=== PATIENT | male | born 1955 | race American Indian/Alaskan Native ===

== ENCOUNTER 2021-10-04 13:07 | Emergency (ER) | payer MEDICARE ==
[2021-10-04 13:46] VITALS: BP 132/84
--- NOTE | 2021-10-04 14:13 | XRay Report ---
CHEST 2 VIEWS INDICATION: SOB. COMPARISON: None. FINDINGS: Support devices: None. Heart: Within normal limits. Lungs/Pleura: No acute air space or interstitial disease. No significant pleural effusion. IMPRESSION: No acute findings. Signer Name: Jose Angel Connors MD Signed: 10/04/2021 2:08 PM Workstation Name: [id number]
[2021-10-04 15:22] LABS: Basophils % (Auto) 0.4 % (0.0-1.8); Eosinophils % (Auto) 0.4 % (0.0-4.3); Hematocrit 43.3 % (35.5-45.6); Hemoglobin 14.8 gm/dl (11.8-15.2); Lymphocytes # (Auto) 1.6 K/mm3 (1.2-5.4); Lymphocytes % (Auto) 25.6 % (13.4-35.0); Mean Corpuscular HGB Conc 34 % (32-34); Mean Corpuscular Volume 97 fl (84-94); Monocytes # (Auto) 0.4 K/mm3 (0.0-0.8); Monocytes % (Auto) 6.1 % (0.0-7.3); Platelet Count 136 K/mm3 (140-440); Red Blood Count 4.47 M/mm3 (3.65-5.03); Red Cell Distribution Width 12.3 % (13.2-15.2)
[2021-10-04 15:35] LABS: BUN/Creatinine Ratio 15; Blood Urea Nitrogen 16 mg/dL (9-20); Calcium 9.3 mg/dL (8.4-10.2); Hemolysis Index 14
--- NOTE | 2021-10-05 11:27 | Electrocardiograph Report ---
[facility] Test Date: 2021-10-04 Test Time: 14:10:22 Pat Name: LIYAH ROSADO Department: Room: Gender: M Computer Equipment Repairer: NURSE : 1955 Requested By: ED DOC Order Number: [id number] Reading MD: Ayo Cisneros Measurements Intervals [place] Rate: 86 P: 59 NM: 142 QRS: -6 QRSD: 82 T: 35 QT: 379 QTc: 454 Interpretive Statements Sinus rhythm No previous ECG available for comparison Electronically Signed On 10-05-2021 11:26:53 EDT by Ayo Cisneros
== END 2021-10-04 15:45 | disposition left against medical advice (07) ==
LOC: ED 13:07
DX: R06.02 Shortness of breath (principal); Z53.21 Procedure and treatment not carried out due to patient leaving prior to being seen by health care provider
CPT/HCPCS: 36415; 71046; 80048; 82140; 82805; 82962; 85025; 93005